=== PATIENT | male | born 1990 | race Caucasian/White ===

== ENCOUNTER 2018-07-27 16:39 | Emergency (ER) | payer OTHER ==
--- NOTE | 2018-07-27 17:13 | EDM.PDOC ---
ED HPI GENERAL MEDICAL PROBLEM - General Chief Complaint: Laceration Stated Complaint: LACERATION TO FOREHEAD Time Seen by Provider: 07/27/18 16:40 Source of Information: Reports: Patient History Limitations: Reports: No Limitations - History of Present Illness INITIAL COMMENTS - FREE TEXT/NARRATIVE: Pt. presents to ER with complaints of laceration to L eyebrow. Pt. states he was working with a pliers and hit himself in the face. He did not have any LOC and remembers the entire event. He states that his tetanus was updated approx. 4 years ago. He states that he chews tobacco but does not smoke. Denies injury other than what is isolated to the L eyebrow area. Onset: Today Onset Date: 07/27/18 Location: Reports: Head, Face Left Forehead Pain Score (Numeric/FACES): 5 - Related Data Allergies Allergy/AdvReac Type Severity Reaction Status Date / Time amoxicillin Allergy Other Verified 07/27/18 16:54 ED ROS GENERAL - Review of Systems Review Of Systems: See Below Constitutional: Reports: No Symptoms HEENT: Reports: Other (laceration to L eyebrow) Respiratory: Reports: No Symptoms Cardiovascular: Reports: No Symptoms Endocrine: Reports: No Symptoms GI/Abdominal: Reports: No Symptoms : Reports: No Symptoms Musculoskeletal: Reports: No Symptoms Skin: Reports: No Symptoms Neurological: Reports: No Symptoms Psychiatric: Reports: No Symptoms Hematologic/Lymphatic: Reports: No Symptoms Immunologic: Reports: No Symptoms ED EXAM, SKIN/RASH Exam: See Below Exam Limited By: No Limitations General Appearance: Alert, WD/WN, No Apparent Distress Eye Exam: Bilateral Eye: EOMI, Normal Fundi, Normal Inspection, PERRL Head: Other (1 cm superficial mildly gaping) Course - Vital Signs Last Recorded V/S: Last Vital Signs Temp 36.2 C 07/27/18 16:45 Pulse 82 07/27/18 16:45 Resp 16 07/27/18 16:45 BP 138/74 07/27/18 16:45 Pulse Ox 98 07/27/18 16:45 - Orders/Labs/Meds Meds: Medications Discontinued Medications Generic Name Dose Route Start Last Admin Trade Name Freq PRN Reason Stop Dose Admin Lidocaine HCl 5 ml 07/27/18 16:55 07/27/18 17:02 Xylocaine-Mpf 1% INJECT 07/27/18 16:56 5 ml ONETIME ONE Administration Departure - Departure Time of Disposition: 17:30 Disposition: Home, Self-Care 01 Clinical Impression: Laceration - Discharge Information Instructions: Laceration Care, Adult Referrals: PCP,Unknown [Primary Care Provider] - Forms: ED Department Discharge Additional Instructions: Keep dry for 24 hours Suture out in 10 days. This is done in the clinic. Return to ER or clinic if you notice any redness, swelling, or discharge from the area. - Assessment/Plan Plan: Keep dry for 24 hours Suture out in 10 days. This is done in the clinic. Return to ER or clinic if you notice any redness, swelling, or discharge from the area.
== END 2018-07-27 17:13 | disposition home or self-care (01) ==
LOC: VM.ED 16:39
DX: S01.112A Laceration without foreign body of left eyelid and periocular area, initial encounter (principal); W22.8XXA Striking against or struck by other objects, initial encounter; Z88.1 Allergy status to other antibiotic agents
CPT/HCPCS: 12011; 99283; J2001

== ENCOUNTER 2018-10-19 10:41 | Emergency (ER) | payer OTHER ==
[2018-10-19] MEDS ORDERED: Lidocaine 1% 30 ML SDV INJECT ONE (10:51)
--- NOTE | 2018-10-20 06:23 | EDM.PDOC ---
ED HPI GENERAL MEDICAL PROBLEM - General Chief Complaint: Laceration Stated Complaint: slipped and sliced open left thumb Time Seen by Provider: 10/19/18 10:41 Source of Information: Reports: Patient History Limitations: Reports: No Limitations - History of Present Illness INITIAL COMMENTS - FREE TEXT/NARRATIVE: Pt. presents to ER with complains of laceration to L thumb over dorsal interphalangeal joint. Denies any numbness/tingling in extremity. He states that his ROM is normal. He states that he cut it on a piece of sheet metal. Denies any injury elsewhere. His tetanus was updated this past spring when he was seen for a facial laceration. Onset: Today Onset Date: 10/20/18 Location: Reports: Upper Extremity, Left Quality: Reports: Throbbing Severity: Moderate Improves with: Reports: Rest Worsens with: Reports: Movement Left Finger-Thumb Pain Score (Numeric/FACES): 7 - Related Data Allergies Allergy/AdvReac Type Severity Reaction Status Date / Time amoxicillin Allergy Other Verified 10/19/18 11:43 Home Meds: Home Meds . [No Known Home Meds] 10/19/18 [History] Past Medical History - Past Surgical History HEENT Surgical History: Reports: Tonsillectomy Social & Family History - Tobacco Use Smoking Status *Q: Current Every Day Smoker Years of Tobacco use: 1 Packs/Tins Daily: 0.5 ED ROS GENERAL - Review of Systems Review Of Systems: See Below Constitutional: Reports: No Symptoms HEENT: Reports: No Symptoms Respiratory: Reports: No Symptoms Cardiovascular: Reports: No Symptoms Endocrine: Reports: No Symptoms GI/Abdominal: Reports: No Symptoms : Reports: No Symptoms Musculoskeletal: Reports: Joint Pain Skin: Reports: No Symptoms Neurological: Reports: No Symptoms Psychiatric: Reports: No Symptoms Hematologic/Lymphatic: Reports: No Symptoms Immunologic: Reports: No Symptoms ED EXAM, SKIN/RASH Exam: See Below Exam Limited By: No Limitations General Appearance: Alert, WD/WN, No Apparent Distress Extremities: Other (2 cm laceration over dorsum of IP joint of L thumb. Superficial. No trauma to underlying structures of the thumb. ) ED SKIN PROCEDURES - Laceration/Wound Repair Left Dorsal Digit - 1st (Thumb) Appearance: Subcutaneous Distal NVT: Neuro & Vascular Intact, No Tendon Injury Anesthetic Type: Local Local Anesthesia - Lidocaine (Xylocaine): 1% Plain Skin Prep: Chlorhexidine (Hibiciens), Saline Saline Irrigation (cc's): 1,000 Exploration/Debridement/Repair: Wound Explored Closed with: Sutures Lac/Wound length In cm: 2 Suture Size: 4-0 # of Sutures: 3 Course - Vital Signs Last Recorded V/S: Last Vital Signs Temp 36.7 C 10/19/18 10:45 Pulse 56 L 10/19/18 10:45 Resp 16 10/19/18 10:45 BP 135/79 10/19/18 10:45 Pulse Ox 96 10/19/18 10:45 - Orders/Labs/Meds Meds: Medications Discontinued Medications Generic Name Dose Route Start Last Admin Trade Name Pooja PRN Reason Stop Dose Admin Lidocaine HCl 30 ml 10/19/18 10:51 10/19/18 11:26 Xylocaine-Mpf 1% INJECT 10/19/18 10:52 30 ml ONETIME ONE Administration Departure - Departure Time of Disposition: 11:35 Disposition: Home, Self-Care 01 Condition: Good Clinical Impression: Laceration - Discharge Information Instructions: Laceration Care, Adult Referrals: PCP,None [Primary Care Provider] - Forms: ED Department Discharge Additional Instructions: Keep dry for 48 hours. Keep open to air as much as possible. Cover if you anticipate getting the area dirty. Return if there is any redness, swelling, or discharge from the area Tylenol and ibuprofen for discomfort Suture removal in clinic in 12 days. - Assessment/Plan Plan: Keep dry for 48 hours. Keep open to air as much as possible. Cover if you anticipate getting the area dirty. Return if there is any redness, swelling, or discharge from the area Tylenol and ibuprofen for discomfort Suture removal in clinic in 12 days.
== END 2018-10-19 11:35 | disposition home or self-care (01) ==
LOC: VM.ED 10:41
DX: S61.012A Laceration without foreign body of left thumb without damage to nail, initial encounter (principal); F17.210 Nicotine dependence, cigarettes, uncomplicated; Z88.1 Allergy status to other antibiotic agents; W26.8XXA Contact with other sharp object(s), not elsewhere classified, initial encounter
CPT/HCPCS: 12001; 99283; J2001

== ENCOUNTER 2020-04-18 18:26 | Emergency (ER) | payer OTHER ==
--- NOTE | 2020-04-18 19:40 | CR ---
[id number] RAD/RAD Foot Left 3V Min EXAM: RAD Foot Left 3V Min INDICATION: DROPPED 150LB WEIGHT ON FOOT COMPARISON: None. DISCUSSION: No fracture, dislocation or other osseous abnormality. IMPRESSION: 1. Negative exam. Marcus Patiño MD 04/18/20 [id number] Thank you for allowing us to participate in the care of your patient.
--- NOTE | 2020-04-18 22:20 | EDM.PDOC ---
ED HPI GENERAL MEDICAL PROBLEM - General Chief Complaint: Lower Extremity Injury/Pain Stated Complaint: LEG FOOT PAIN Time Seen by Provider: 04/18/20 18:35 Source of Information: Reports: Patient History Limitations: Reports: No Limitations - History of Present Illness INITIAL COMMENTS - FREE TEXT/NARRATIVE: Pt. states that he dropped a steel object weighing approx. 150# onto his L mid foot at approx. 10-11:00 AM today. He states that he was able to work, but states that he is concerned because it still hurts. He has not iced the foot. Denies using any NSAIDS. He is able to bear weight but with increased discomfort. No numbness/tingling in the distal portion of the extremity. Denies any injury elsewhere. Onset: Today Location: Reports: Lower Extremity, Left Quality: Reports: Throbbing Severity: Moderate Left Feet Pain Score (Numeric/FACES): 7 - Related Data Allergies Allergy/AdvReac Type Severity Reaction Status Date / Time amoxicillin Allergy Other Verified 04/18/20 18:39 Home Meds: Home Meds . [No Known Home Meds] 10/19/18 [History] Past Medical History - Past Surgical History HEENT Surgical History: Reports: Tonsillectomy Social & Family History - Tobacco Use Tobacco Use Status *Q: Never Tobacco User Review of Systems - Review of Systems Review Of Systems: Comprehensive ROS is negative, except as noted in HPI. ED EXAM, GENERAL - Physical Exam Exam: See Below Exam Limited By: No Limitations General Appearance: Alert, WD/WN, No Apparent Distress Extremities: Other (edema, ecchymosis to dorsal midfoot region. No crepitus or deformity. CMS intact. No open fracture or dislocation noted. Denies pain in ankle, lower leg, or elsewhere.) Course - Vital Signs Last Recorded V/S: Last Vital Signs Temp 36.9 C 04/18/20 18:30 Pulse 94 04/18/20 18:30 Resp 16 04/18/20 18:30 BP 135/87 04/18/20 18:30 Pulse Ox 97 04/18/20 18:30 - Radiology Interpretation Free Text/Narrative:: Radiographs of L foot obtained, negative for acute fracture/dislocation. Departure - Departure Time of Disposition: 19:30 Disposition: Home, Self-Care 01 Clinical Impression: Contusion of foot, left - Discharge Information Instructions: Foot Contusion, [id number] Referrals: PCP,None [Primary Care Provider] - Forms: ED Department Discharge Additional Instructions: Ibuprofen 200mg 4 tabs every 8 hours as needed for pain Off work tomorrow if needed Ice foot for 10-15 min every 1-2 hours as needed for pain/swelling Elevate foot above heart as much as possible when resting at home Recheck in clinic in 7-10 days if still continuing to have pain Sepsis Event Note (ED) - Evaluation Sepsis Screening Result: No Definite Risk - Focused Exam Vital Signs: Vital Signs Temp Pulse Resp BP Pulse Ox 04/18/20 18:30 36.9 C 94 16 135/87 97 - Problem List Review Problem List Initiated/Reviewed/Updated: Yes - Assessment/Plan Plan: Ibuprofen 200mg 4 tabs every 8 hours as needed for pain Off work tomorrow if needed Ice foot for 10-15 min every 1-2 hours as needed for pain/swelling Elevate foot above heart as much as possible when resting at home Recheck in clinic in 7-10 days if still continuing to have pain
== END 2020-04-18 19:58 | disposition home or self-care (01) ==
LOC: VM.ED 18:26
DX: S90.32XA Contusion of left foot, initial encounter (principal); Z88.0 Allergy status to penicillin; W20.8XXA Other cause of strike by thrown, projected or falling object, initial encounter
CPT/HCPCS: 73630-LT; 99283; 99283-25